=== PATIENT | female | born 1995 | race Caucasian/White ===

== ENCOUNTER 2018-08-10 13:59 | Emergency (ER) | payer OTHER, BC ==
[~2018-08-10] VITALS: Ht 165.1 cm; Wt 65.5 kg
[2018-08-10 14:06] VITALS: BP 135/83; PULSE 98; TEMP 99.5
[2018-08-10] MEDS ORDERED: oral birth control PO (15:08)
== END 2018-08-10 16:52 | disposition home or self-care (01) ==
LOC: COL.ER 13:59
DX: S70.12XA Contusion of left thigh, initial encounter (principal); F17.210 Nicotine dependence, cigarettes, uncomplicated; V43.52XA Car driver injured in collision with other type car in traffic accident, initial encounter